=== PATIENT | male | born 1975 | race Caucasian/White ===

== ENCOUNTER → 2021-07-13 | Outpatient (CLI) | payer OTHER ==
[~2021-07-13] MED LIST: CYCL10 PO; PRED20 PO
[2021-07-13 12:25] LABS: U Amphetamine Screen DETECTED; U Barbituate Screen Not Detected; U Benzodiazapine Screen Not Detected; U Buprenorphine Screen Not Detected; U Cannabinoids Screen DETECTED; U Cocaine Screen Not Detected; U Methadone Screen Not Detected; U Methamphetamine Screen Not Detected; U Opiates Screen Not Detected; U Oxycodone Screen Not Detected; U Phencyclidine Screen Not Detected; U Propoxyphene Screen Not Detected
== END | disposition home or self-care (01) ==
LOC: LAB SHORT 10:30
PROVIDERS: Nurse Practitioner Psychiatric/Mental Health
DX: Z13.39 Encounter for screening examination for other mental health and behavioral disorders (principal)

== ENCOUNTER 2022-09-14 09:01 | Day surgery (SDC) | payer BC ==
[~2022-09-14] VITALS: Ht 185.4 cm; Wt 94.7 kg
[2022-09-14] MEDS ORDERED: Vitamin C100 M1 (09:22)
[2022-09-14] MEDS ORDERED: CELECOXIB200 MG (09:22)
[2022-09-14] MEDS ORDERED: IMPOYZ100 GM (09:23)
[2022-09-14] MEDS ORDERED: METPRE32 (09:23)
[2022-09-14] MEDS ORDERED: MAGCIT300 (09:23)
[2022-09-14] MEDS ORDERED: FLONASE ALLERG9.9 ML (09:23)
[2022-09-14] MEDS ORDERED: TRAZ50 (09:24)
[2022-09-14] MEDS ORDERED: METHYLPHENIDATE36 MG PO (09:24)
[2022-09-14] MEDS ORDERED: VENL37.5ER (09:25)
[2022-09-14] MEDS ORDERED: GLUCOSAMINE-CH1 EA49 (09:26)
[2022-09-14] MEDS ORDERED: [UNRECOGNIZED DRUG - CODE] (09:26)
[2022-09-14] MEDS ORDERED: FISH OIL 1,2001 EAC7 (09:27)
[2022-09-14 11:29] VITALS: BP 128/89
== END 2022-09-14 11:39 | disposition home or self-care (01) ==
LOC: ORSCSDS 09:01
PROVIDERS: Internal Medicine Gastroenterology
PROC: 0DJD8ZZ Inspection of Lower Intestinal Tract, Via Natural or Artificial Opening Endoscopic (ICD-10-PCS; principal; 2022-09-14 10:15)
DX: Z12.11 Encounter for screening for malignant neoplasm of colon (principal); K64.8 Other hemorrhoids; K57.30 Diverticulosis of large intestine without perforation or abscess without bleeding; Z87.891 Personal history of nicotine dependence; Z79.899 Other long term (current) drug therapy
CPT/HCPCS: J2250; J2405; J2704; J7120